=== PATIENT | male | born 1960 | race Caucasian/White ===

== ENCOUNTER 2017-01-25 10:13 | Emergency (ER) | payer BC ==
[~2017-01-25] VITALS: Ht 185.4 cm; Wt 120.6 kg
[~2017-01-25 10:13] MED LIST: ASPI1TAB69 PO; LISI10TA3 PO
[2017-01-25 10:16] VITALS: BP 126/91; PULSE 92; RESP 16; TEMP 98.3; O2SAT 96
[2017-01-25] MEDS ORDERED: METH8TAB3 PO (10:28)
[2017-01-25] MEDS ORDERED: FLUC150T PO (10:28)
[2017-01-25] MEDS ORDERED: FOLBTAB4 (10:28)
[2017-01-25] MEDS ORDERED: ZANT150T2 PO (10:57)
--- NOTE | 2017-01-25 10:58 | PD ---
HPI Chief Complaint: Allergic/Adverse Reaction Time Seen by Provider: 10:39 Travel History International Travel<30 days: No Contact w/Intl Traveler<30days: No Traveled to known affect area: No History of Present Illness HPI This 56-year-old male is complaining of fairly diffuse hives. This is started on Monday. He went to see his doctor and was given prescription for Medrol. He is also been taking Benadryl. No hives have not improved. He has a history of hypertension and is on lisinopril he has not been any medicine. He had been in [place] and developed an infection and was put on Augmentin finished 2 days before the hives started. They're quite itchy. He is not short of breath PFSH Past Medical History Hx Anticoagulant Therapy: Yes (asa 81mg) Cardiovascular Problems: Yes (htn on meds) Hypertension: Yes Respiratory: Yes Past Surgical History Tonsillectomy: Yes Social History Alcohol Use: Yes Tobacco Use: No Substance Use: No Allergies-Medications (Allergen,Severity, Reaction): Coded Allergies: Augmentin (Verified Allergy, Unknown, HIVES, 01/25/17) Reported Meds & Prescriptions Reported Meds & Active Scripts Active Reported Folbic (Folic Bfxg-Pnwhbfrttx-Okewmqni) 2.5-25-2 Mg Tab Fluconazole 150 Mg Tab 150 Mg PO ONCE Methylprednisolone 8 Mg Tab 4 Mg PO DAILY Lisinopril 10 Mg Tab 5 Mg PO DAILY Review of Systems General / Constitutional: No: Fever, Chills Eyes: No: Diploplia, Blurred Vision HENT: No: Headaches, Vertigo Cardiovascular: No: Chest Pain or Discomfort, Palpitations Respiratory: No: Cough Gastrointestinal: No: Nausea, Vomiting Genitourinary: No: Urgency Musculoskeletal: No: Myalgias, Arthralgias Skin: Positive Rash, Positive Itching Neurologic: No: Weakness, Dizziness Hematologic/Lymphatic: No: Easy Bruising Physical Exam Narrative GENERAL: Well-developed male SKIN: Focused skin assessment warm/dry. There are fairly diffuse urticarial lesions HEAD: Atraumatic. Normocephalic. EYES: Pupils equal and round. No scleral icterus. No injection or drainage. ENT: No nasal bleeding or discharge. Mucous membranes pink and moist. NECK: Trachea midline. No JVD. CARDIOVASCULAR: Regular rate and rhythm. No murmur appreciated. RESPIRATORY: No accessory muscle use. Clear to auscultation. Breath sounds equal bilaterally. GASTROINTESTINAL: Abdomen soft, non-tender, nondistended. Hepatic and splenic margins not palpable. MUSCULOSKELETAL: No obvious deformities. No clubbing. No cyanosis. No edema. NEUROLOGICAL: Awake and alert. No obvious cranial nerve deficits. Motor grossly within normal limits. Normal speech. PSYCHIATRIC: Appropriate mood and affect; insight and judgment normal. Data Data Last Documented VS Vital Signs Date Time Temp Pulse Resp B/P Pulse Ox O2 Delivery O2 Flow Rate FiO2 01/25/17 10:16 98.3 92 16 126/91 96 MDM Medical Decision Making Medical Screen Exam Complete: Yes Emergency Medical Condition: Yes Medical Record Reviewed: Yes Differential Diagnosis Differential includes urticaria, allergic reaction, Narrative Course Patient has urticaria and has not had a very good response at this point to the Medrol. He is to continue the Medrol. I will add Zantac to his regimen. Should follow-up with dermatology if this persists Diagnosis Primary Impression: Urticaria Scripts Ranitidine (Zantac)150 Mg Sqb540 Mg PO BID #30 TAB Ref 0 Prov:Benjamín Solis MD 01/25/17 Disposition: 01 DISCHARGE HOME Condition: Stable Benjamín Solis MD Jan 25, 2017 10:58
== END 2017-01-25 11:11 | disposition home or self-care (01) ==
LOC: PHED 10:13
DX: L50.9 Urticaria, unspecified (principal); I10 Essential (primary) hypertension; Z79.82 Long term (current) use of aspirin
CPT/HCPCS: 99283